=== PATIENT | female | born 1940 | race African-American/Black ===

== ENCOUNTER 2017-10-22 09:33 | Emergency (ER) | payer SELFPAY ==
[~2017-10-22] VITALS: Ht 175.3 cm; Wt 117.0 kg
[2017-10-22] MEDS ORDERED: ONDANSETRON 4MG ODT PO ONE (10:00)
[2017-10-22] MEDS ORDERED: HYDROCODONE/ACETAMINOPHEN 5/325MG TABLET PO ONE (10:00)
[2017-10-22 11:57] VITALS: BP 151/79
== END 2017-10-22 11:58 | disposition home or self-care (01) ==
LOC: ER 09:33
DX: M25.512 Pain in left shoulder (principal); I10 Essential (primary) hypertension; E11.9 Type 2 diabetes mellitus without complications; Z88.0 Allergy status to penicillin; Z91.81 History of falling
CPT/HCPCS: 71010; 73030; 82962; 99284; Q0162; Z7610; A4565